=== PATIENT | male | born 1965 | race Caucasian/White ===

== ENCOUNTER 2021-06-04 12:40 | Emergency (ER) | payer BC, MEDICARE ==
[~2021-06-04] VITALS: Ht 160 cm; Wt 109.1 kg
[~2021-06-04 12:40] MED LIST: GEN0.3OS OP; IBUP-1984 PO
[2021-06-04 12:52] VITALS: BP 152/89
[2021-06-04] MEDS ORDERED: BAMLANIVIMAB 700mg/20ml inj. 700 MG, ETESEVIMAB 700mg/20mL inj. 1,400 MG in normal sali... IV ONE (14:20)
== END 2021-06-04 16:18 | disposition home or self-care (01) ==
LOC: ER 12:41
DX: U07.1 COVID-19 (principal); R06.02 Shortness of breath; Z88.5 Allergy status to narcotic agent; Z79.899 Other long term (current) drug therapy
CPT/HCPCS: 87635; 99284; C9803; M0245; Q0245; Q0239